=== PATIENT | female | born 1950 | race Caucasian/White ===

== ENCOUNTER → 2018-06-01 | Outpatient (CLI) | payer OTHER | LOC: RAD 10:01 | DX: Z12.31 Encounter for screening mammogram for malignant neoplasm of breast (principal) ==

== ENCOUNTER → 2019-08-08 | Outpatient (CLI) | payer OTHER | LOC: BC 10:23 | DX: Z12.31 Encounter for screening mammogram for malignant neoplasm of breast (principal) ==

== ENCOUNTER → 2019-09-05 | Outpatient (CLI) | payer OTHER | LOC: ULTRA 10:51 | DX: D25.9 Leiomyoma of uterus, unspecified (principal); K80.20 Calculus of gallbladder without cholecystitis without obstruction; N28.1 Cyst of kidney, acquired ==

== ENCOUNTER → 2019-09-13 | Outpatient (CLI) | payer OTHER ==
[2019-09-13 09:20] LABS: CREATININE 0.8 mg/dL (0.6-1.0)
== END ==
LOC: CAT 08:02
PROVIDERS: Nurse Practitioner
DX: K57.30 Diverticulosis of large intestine without perforation or abscess without bleeding (principal); N28.1 Cyst of kidney, acquired; K80.80 Other cholelithiasis without obstruction

== ENCOUNTER → 2019-11-19 | Outpatient (CLI) | payer OTHER | LOC: MRI 10:10 | DX: M19.072 Primary osteoarthritis, left ankle and foot (principal); R22.40 Localized swelling, mass and lump, unspecified lower limb; M25.775 Osteophyte, left foot; M71.572 Other bursitis, not elsewhere classified, left ankle and foot ==

== ENCOUNTER → 2020-11-27 | Outpatient (CLI) | payer OTHER | LOC: BC 10:30 | PROVIDERS: ATTEND Nurse Practitioner | DX: Z12.31 Encounter for screening mammogram for malignant neoplasm of breast (principal) ==

== ENCOUNTER 2020-12-13 10:39 | Emergency (ER) | payer OTHER ==
[~2020-12-13] VITALS: Ht 154.9 cm; Wt 99.8 kg
[2020-12-13 11:01] LABS: ABSOLUTE NEUTROPHILS 6.3 thou/uL (1.4-8.2); BASOPHILS 0.3 % (0.0-2.0); HEMATOCRIT 35.2 % (37.0-47.0); HEMOGLOBIN 11.6 gm/dL (12.0-15.0); LYMPHOCYTES 14.5 % (24.0-44.0); MCH 29.9 pg (26.0-34.0); MCV 90.6 fL (80.0-100.0); MONOCYTES 9.8 % (1.0-8.0); PLATELET COUNT 208 thou/uL (150-400); POLYS 73.4 % (36.0-66.0); RBC 3.88 mil/uL (4.20-5.00); RDW 13.8 % (10.5-14.5); WBC 8.6 thou/uL (4.0-11.0)
[2020-12-13 11:20] LABS: CALCIUM 9.4 mg/dL (8.5-10.1); CREATININE 0.8 mg/dL (0.6-1.0); POTASSIUM 4.2 mmol/L (3.5-5.1)
[2020-12-13 11:25] LABS: ALBUMIN 3.4 g/dL (3.4-5.0); TOTAL BILIRUBIN 0.6 mg/dL (0.2-1.0); TOTAL PROTEIN 8.2 g/dL (6.4-8.2)
[2020-12-13 12:49] LABS: URINE BILIRUBIN NEGATIVE (Negative); URINE BLOOD TRACE (Negative); URINE CLARITY CLEAR; URINE COLOR YELLOW; URINE GLUCOSE-RANDOM* NEGATIVE (Negative); URINE KETONES NEGATIVE (Negative); URINE LEUKOCYTES-REFLEX TRACE (Negative); URINE NITRITE-REFLEX NEGATIVE (Negative); URINE PROTEIN (DIPSTICK) 2+ (Negative); URINE SPECIFIC GRAVITY >= 1.030 (1.005-1.035)
[2020-12-13 13:01] LABS: BACTERIA-REFLEX 1-9 Few /HPF (None Seen); CASTS None Seen /LPF (None Seen); CRYSTALS None Seen /LPF (None Seen); SQUAMOUS 4-10 Moderate /LPF (0-3); URINE RBC 1-2 Rare /HPF (NONE SEEN); URINE WBC-REFLEX 0-5 Rare /HPF (0-5)
[2020-12-13 15:27] VITALS: BP 119/56
--- NOTE | 2020-12-14 07:13 | EKG ---
[place] [address] [address] [facility] [address] ELECTROCARDIOGRAM REPORT Name: AMARI CAMPOVERDE Room #: DEP [facility] Anne#: [id number] Admission: 12/13/20 Attend Phys: Discharge: 12/13/20 Date of : 54 Report #: [id number] [facility] ED Test Date: 2020-12-13 Test Time: 11:00:15 Pat Name: AMARI CAMPOVERDE Department: Room: Gender: F Maintenance Man: sydni : 1950 Requested By: Hunter Rodriguez Order Number: [id number] MD: Reinier Siu Measurements Intervals [place] Rate: 73 P: 46 ME: 164 QRS: -28 QRSD: 90 T: 23 QT: 371 QTc: 409 Interpretive Statements Sinus rhythm Probable left atrial enlargement Borderline left axis deviation Baseline wander in lead(s) II,III,aVR,aVF No previous ECG available for comparison Electronically Signed On 12-14-2020 7:13:06 CDT by Reinier Siu [email or web address] <ELECTRONICALLY SIGNED> By: Reinier Siu MD, [facility] 12/14/20 0713 1100 Bishop Siu MD FACAshley /EPI
== END 2020-12-13 15:32 | disposition short-term general hospital (02) ==
LOC: ER 10:39
PROVIDERS: Emergency Medicine Emergency Medical Services
DX: G93.89 Other specified disorders of brain (principal); R42 Dizziness and giddiness; Z20.822 Contact with and (suspected) exposure to COVID-19; Z88.0 Allergy status to penicillin